=== PATIENT | male | born 1965 | race Caucasian/White ===

== ENCOUNTER 2023-03-14 10:00 | Emergency (ER) | payer OTHER ==
[2023-03-14] MEDS ORDERED: Bacitracin/Hydrocortisone/Neomycin/Polymyxin Ophth Oint 3.5 GM Tube EYEBOTH SCH (10:30)
== END 2023-03-14 11:00 | disposition home or self-care (01) ==
LOC: KA.ED 10:00
DX: T26.92XA Corrosion of left eye and adnexa, part unspecified, initial encounter (principal); T26.91XA Corrosion of right eye and adnexa, part unspecified, initial encounter; H18.893 Other specified disorders of cornea, bilateral; L50.9 Urticaria, unspecified; Z91.041 Radiographic dye allergy status; Y99.0 Civilian activity done for income or pay
CPT/HCPCS: 99283; 99284; A9270-GY